=== PATIENT | male | born 1985 | race Caucasian/White ===

== ENCOUNTER 2019-06-20 17:53 | Emergency (ER) | payer SELFPAY ==
[~2019-06-20] VITALS: Ht 172.7 cm; Wt 77.1 kg
--- NOTE | 2019-06-20 18:54 | PHYS DOC ---
Past Medical History Past Medical History: Anxiety, Depression, Other Additional Past Medical Histor: opioid abuse Past Surgical History: No Surgical History Alcohol Use: Heavy Drug Use: Cocaine, Marijuana Adult General Chief Complaint Chief Complaint: ANXIETY/PANIC ATTACK HPI HPI Patient is a 34 year old male who presents with states he got off the phone with his ex- and they got in an argument and she still will not let him see his son of which she has not seen for 3 months. Patient states he's been very stressed out and began drinking a couple beers tonight, and bicarbonate lemonades a day. He states he also relapsed and 3 days ago he did cocaine. Patient states that it had been 7 years of sobriety for him. He states he was addicted to opiates, OxyContin. He states he is currently on suboxone and an anxiety medication. He states that he took both of those prior to arrival to the ER today. He states that he is feeling better since he is here and that he is safe. Patient states he is not going to any groups and does not have a therapist that he goes to jainism is trying to turn his life around. He denies suicidal ideation or homicidal ideation Review of Systems Review of Systems Constitutional: Anxiety. Denies fever or chills [] All other systems were reviewed and found to be within normal limits, except as documented in this note. Allergies Allergies Allergies Coded Allergies Type Severity Reaction Last Updated Verified No Known Drug Allergies 06/20/19 No Physical Exam Physical Exam Constitutional: Anxious. Well developed, well nourished, no acute distress, non- toxic appearance. [] HENT: Normocephalic, atraumatic, bilateral external ears normal, oropharynx mois t, no oral exudates, nose normal. [] Eyes: PERRLA, EOMI, conjunctiva normal, no discharge. [] Neck: Normal range of motion, no tenderness, supple, no stridor. [] Cardiovascular:Heart rate regular rhythm, no murmur [] Lungs & Thorax: Bilateral breath sounds clear to auscultation [] Abdomen: Bowel sounds normal, soft, no tenderness, no masses, no pulsatile masses. [] Skin: Warm, dry, no erythema, no rash. [] Back: No tenderness, no CVA tenderness. [] Extremities: No tenderness, no cyanosis, no clubbing, ROM intact, no edema. [] Neurologic: Alert and oriented X 3, normal motor function, normal sensory function, no focal deficits noted. [] Psychologic: Affect normal, judgement normal, mood normal. [] Current Patient Data Vital Signs Vital Signs Date Time Temp Pulse Resp B/P (MAP) Pulse Ox O2 Delivery O2 Flow Rate FiO2 06/20/19 17:53 98.2 99 16 160/107 (124) 99 Room Air 98.2 Lab Values Laboratory Tests Test 06/20/19 18:52 06/20/19 19:00 White Blood Count 4.3 x10^3/uL (4.0-11.0) Red Blood Count 4.16 x10^6/uL (4.30-5.70) L Hemoglobin 13.7 g/dL (13.0-17.5) Hematocrit 39.6 % (39.0-53.0) Mean Corpuscular Volume 95 fL (79-100) Mean Corpuscular Hemoglobin 33 pg (25-35) Mean Corpuscular Hemoglobin Concent 35 g/dL (31-37) Red Cell Distribution Width 13.0 % (11.5-14.5) Platelet Count 254 x10^3/uL (140-400) Neutrophils (%) (Auto) 65 % (31-73) Lymphocytes (%) (Auto) 23 % (24-48) L Monocytes (%) (Auto) 11 % (0-9) H Eosinophils (%) (Auto) 0 % (0-3) Basophils (%) (Auto) 1 % (0-3) Neutrophils # (Auto) 2.8 x10^3/uL (1.8-7.7) Lymphocytes # (Auto) 1.0 x10^3/uL (1.0-4.8) Monocytes # (Auto) 0.5 x10^3/uL (0.0-1.1) Eosinophils # (Auto) 0.0 x10^3/uL (0.0-0.7) Basophils # (Auto) 0.0 x10^3/uL (0.0-0.2) Sodium Level 135 mmol/L (136-145) L Potassium Level 3.4 mmol/L (3.5-5.1) L Chloride Level 100 mmol/L (98-107) Carbon Dioxide Level 23 mmol/L (21-32) Anion Gap 12 (6-14) Blood Urea Nitrogen 20 mg/dL (8-26) Creatinine 1.0 mg/dL (0.7-1.3) Estimated GFR (Cockcroft-Gault) 85.0 Glucose Level 99 mg/dL (70-99) Calcium Level 9.2 mg/dL (8.5-10.1) Troponin I Quantitative < 0.017 ng/mL (0.000-0.055) Ethyl Alcohol Level < 10 mg/dL (0-10) Urine Opiates Screen Neg (NEG) Urine Methadone Screen Neg (NEG) Urine Barbiturates Neg (NEG) Urine Phencyclidine Screen Neg (NEG) Urine Amphetamine/Methamphetamine Neg (NEG) Urine Benzodiazepines Screen Neg (NEG) Urine Cocaine Screen Pos (NEG) Urine Cannabinoids Screen Neg (NEG) Urine Ethyl Alcohol Pos (NEG) Laboratory Tests 06/20/19 18:52 Laboratory Tests 06/20/19 18:52 EKG EKG Sinus Rhythm and no STEMI[] Interpretation Time: [address] Benavides Radiology/Procedures Radiology/Procedures [] Course & Med Decision Making Course & Med Decision Making Lungs are clear to auscultation all lobes. Speaks in full clear sentences. Vital signs are normal. Patient is very worried about his vital signs and if he is okay. Patient is reassured that he is okay. Skin pink warm and dry. Ambulatory with a steady gait. Alert and oriented. Patient has agreed to let the Pat team come and speak with him and give him resources. Patient denies chest pain, shortness of breath, abdominal pain, nausea, vomiting, headache, dizziness, visual changes, weakness. Patient states that his hand still feels tingly but t hat is getting better. Lila from PAT team has spoken tot the patient and given him resources for JENNIFFER and RSI. Patient refuses to go to any facility tonight. Dragon Disclaimer Dragon Disclaimer This electronic medical record was generated, in whole or in part, using a voice recognition dictation system. Departure Departure Impression: Primary Impression: Anxiety Disposition: 01 HOME, SELF-CARE Condition: STABLE Patient Instructions: Anxiety and Panic Attacks Additional Instructions: Follow-up with your primary care and resources given to you. YARIEL SPEAR BOSS MINER Jun 20, 2019 18:54
[2019-06-20 18:58] LABS: BASO % 1 % (0-3); EOS % 0 % (0-3); HEMATOCRIT 39.6 % (39.0-53.0); HEMOGLOBIN 13.7 g/dL (13.0-17.5); LYMPH % 23 % (24-48); MEAN CORPUSCULAR HEMOGLOBIN 33 pg (25-35); MEAN CORPUSCULAR HGB CONC 35 g/dL (31-37); MEAN CORPUSCULAR VOLUME 95 fL (79-100); MONO # 0.5 x10^3/uL (0.0-1.1); MONO % 11 % (0-9); NEUT # 2.8 x10^3/uL (1.8-7.7); NEUT % 65 % (31-73); PLATELET COUNT 254 x10^3/uL (140-400); RED BLOOD COUNT 4.16 x10^6/uL (4.30-5.70); WHITE BLOOD COUNT 4.3 x10^3/uL (4.0-11.0)
[2019-06-20 19:06] LABS: CALCIUM 9.2 mg/dL (8.5-10.1); POTASSIUM 3.4 mmol/L (3.5-5.1)
[2019-06-20 19:17] LABS: BARBITURATES NEG (NEG); BENZODIAZEPINES NEG (NEG); CANNABINOIDS NEG (NEG); COCAINE POS (NEG); METHADONE NEG (NEG); OPIATES NEG (NEG); PHENCYCLIDINE NEG (NEG)
[2019-06-20 19:19] LABS: AMPHETAMINE/METHAMPHETAMINE NEG (NEG)
[2019-06-20 20:30] VITALS: BP 144/79
--- NOTE | 2019-06-21 10:10 | EKG ---
[facility] [address] [place] [address] Test Date: 2019-06-20 Test Time: 18:59:28 Pat Name: CHRISTOPHER PAINTER Department: Room: Gender: M [employer]: : [id number] Requested By: YARIEL SPEAR Order Number: [id number] Reading MD: Measurements Intervals [place] Rate: 86 P: 51 MN: 142 QRS: 44 QRSD: 90 T: 27 QT: 376 QTc: 453 Interpretive Statements SINUS RHYTHM NORMAL ECG No previous ECG available for comparison
== END 2019-06-20 20:49 | disposition home or self-care (01) ==
LOC: ER 17:53
DX: F41.9 Anxiety disorder, unspecified (principal); F32.9 Major depressive disorder, single episode, unspecified; F12.10 Cannabis abuse, uncomplicated; F14.10 Cocaine abuse, uncomplicated; F11.10 Opioid abuse, uncomplicated
CPT/HCPCS: 36415; 80048; 80307; 84484; 85025; 93005; 99285; G0480